=== PATIENT | female | born 1975 | race Caucasian/White ===

== ENCOUNTER 2018-09-08 03:56 | Emergency (ER) | payer BC ==
[~2018-09-08] VITALS: Ht 167.6 cm; Wt 56.8 kg
[~2018-09-08 03:56] MED LIST: DEXL60CA3 PO; LORA0.5T PO
[2018-09-08] MEDS ORDERED: ondansetron/PF 4mg/2ml inj IV ONE (04:20)
[2018-09-08] MEDS ORDERED: iohexol 300mg/ml 100ml inj. ONE (04:30)
[2018-09-08] MEDS ORDERED: ketorolac trometh. 30mg/ml inj. IV ONE (04:40)
[2018-09-08 04:41] LABS: BASOPHILS % (AUTO) 0.3 % (0-1); EOSINOPHILS # (AUTO) 0.1 X10'3 (0-0.9); EOSINOPHILS % (AUTO) 1.1 % (0-6); HEMATOCRIT 41.4 % (35.0-45.0); LYMPHOCYTES # (AUTO) 1.5 X10'3 (1.1-4.8); LYMPHOCYTES % (AUTO) 18.9 % (21-51); MEAN CORPUSCULAR HEMOGLOBIN 30.5 PG (27.0-31.0); MEAN CORPUSCULAR HGB CONC 33.9 g/dL (33.0-36.5); MEAN CORPUSCULAR VOLUME 90.1 FL (78-98); MEAN PLATELET VOLUME 8.9 FL (7.4-10.4); MONOCYTES # (AUTO) 0.6 X10'3 (0-0.9); MONOCYTES % (AUTO) 7.1 % (2-12); NEUTROPHILS # (AUTO) 5.7 X10'3 (1.8-7.7); NEUTROPHILS % (AUTO) 72.6 % (42-75); PLATELET COUNT 282 X10'3 (140-440); RED BLOOD COUNT 4.59 X10'6 (4.20-5.60); RED CELL DISTRIBUTION WIDTH 12.4 % (11.5-14.5); WHITE BLOOD COUNT 7.9 X10'3 (4.5-11.0)
[2018-09-08 04:44] LABS: CLARITY,URINE CLEAR (Clear); COLOR,URINE YELLOW (Yellow); GLUCOSE, URINE NEGATIVE (Neg); KETONES,URINE NEGATIVE (Neg); LEUKOCYTE ESTERASE ,URINE NEGATIVE (Neg); NITRITES, URINE NEGATIVE (Neg); OCCULT BLOOD,URINE SMALL (Neg); PH,URINE 6.5 (4.8-8.0); PROTEIN,URINE NEGATIVE (Neg); UROBILINOGEN,URINE 0.2 E.U/dL (0.2-1.0)
[2018-09-08 04:45] LABS: UA COLLECTION TYPE CLN CATCH MIDSTREAM; URINE HCG NEGATIVE (NEG)
[2018-09-08 04:54] LABS: ALANINE AMINOTRANSFERASE 17 U/L (12-78); ALBUMIN 3.9 G/DL (3.4-5.0); ALBUMIN/GLOBULIN RATIO 1.1 (1.1-1.5); ALKALINE PHOSPHATASE 67 IU/L (46-116); ANION GAP 10 (8-16); ASPARTATE AMINO TRANSFERASE 12 U/L (10-37); BACTERIA,URINE 2+ /HPF (Neg); BILIRUBIN,TOTAL 0.3 MG/DL (0.1-1.0); BLOOD UREA NITROGEN 12 MG/DL (7-18); BUN/CREATININE RATIO 14.8 (6.6-38.0); CALCIUM 8.8 MG/DL (8.5-10.1); CHLORIDE 106 MMOL/L (99-107); CREATININE 0.81 MG/DL (0.40-0.90); GLUCOSE 101 MG/DL (70-104); POTASSIUM 3.4 MMOL/L (3.5-5.1); RBC,URINE 0-2 /HPF (0-2); SODIUM 141 MMOL/L (135-145); SQUAMOUS EPITHELIAL CELL,UR MODERATE /LPF (FEW); TOTAL CARBON DIOXIDE 24.8 MMOL/L (24-32); TOTAL PROTEIN 7.5 G/DL (6.4-8.2); WBC,URINE 0-4 /HPF (0-4); eGFR 78 ML/MIN
[2018-09-08 04:55] LABS: PROTHROMBIN TIME 9.7 SECONDS (9.0-12.0)
[2018-09-08] MEDS ORDERED: ACET-3067 PO (05:47)
[2018-09-08] MEDS ORDERED: HYDROmorphone inj. 0.5 MG/0.5 ML DISP.SYRIN IV ONE (05:50)
[2018-09-08 06:02] VITALS: BP 103/71
== END 2018-09-08 06:04 | disposition home or self-care (01) ==
LOC: ER 03:56
DX: N83.201 Unspecified ovarian cyst, right side (principal); Z90.710 Acquired absence of both cervix and uterus; Z79.899 Other long term (current) drug therapy
CPT/HCPCS: 36415; 74177; 80053; 81001; 81025; 85025; 85610; 93005; 96374; 96375; 99284; J1170; J1885; J2405; Q9967